=== PATIENT | male | born 2000 | race Caucasian/White ===

== ENCOUNTER 2021-01-16 18:29 | Emergency (ER) | payer OTHER ==
--- NOTE | 2021-01-16 18:41 | EDM.PDOC ---
<Arin Crockett - Last Filed: 01/16/21 18:41> ED HPI GENERAL MEDICAL PROBLEM - General Chief Complaint: Bite:Animal, Insect Stated Complaint: AMBULANCE Time Seen by Provider: 01/16/21 18:30 Source of Information: Reports: Patient, EMS, EMS Notes Reviewed, Family, RN, RN Notes Reviewed History Limitations: Reports: No Limitations - History of Present Illness INITIAL COMMENTS - FREE TEXT/NARRATIVE: Patient is a 20-year-old male who presents to ER per [facility] with complaint of bee sting to the lip. EMS reports the patient was gi kacey 2 injections of EpiPen Stewart after the bee sting due to the patient feeling as if he had a scratchy throat and was having difficulty breathing. Upon arrival to the scene EMS did give the patient 25 mg of Benadryl IV. EMS did call the ER and was instructed by this provider to give Pepcid 20 mg IV as well as Solu-Medrol 125 mg IV. 1 L normal saline was also started in the field. Upon arrival to the ER patient is shaking, states he feels nauseated but has not vomited. EMS reports they have given a total of 4 mg Zofran in the field as well. Patient denies any past medical health problems, admits to history of MD. Onset: Today, Sudden ED ROS GENERAL - Review of Systems Review Of Systems: Comprehensive ROS is negative, except as noted in HPI. ED EXAM, ANIMAL BITE - Physical Exam Exam: See Below Exam Limited By: No Limitations General Appearance: Alert, WD/WN, No Apparent Distress, Anxious Eye Exam: Bilateral Eye: EOMI, Normal Inspection Ears: Normal External Exam, Hearing Grossly Normal Nose: Normal Inspection Throat/Mouth: Normal Inspection, Normal Voice, No Airway Compromise, Other (bottom lip swollen) Head: Atraumatic, Normocephalic Neck: Normal Inspection, Supple, Non-Tender, Full Range of Motion Respiratory/Chest: No Respiratory Distress, Lungs Clear, Normal Breath Sounds, No Accessory Muscle Use, Chest Non-Tender Cardiovascular: Normal Peripheral Pulses, Regular Rate, Rhythm, No Edema, No Gallop, No JVD, No Murmur, No Rub Peripheral Pulses: 2+: Radial (L), Radial (R) GI/Abdominal: Normal Bowel Sounds, Soft, Non-Tender (Male) Exam: Deferred Rectal (Males) Exam: Deferred Back Exam: Normal Inspection, Full Range of Motion, NT Extremities: Normal Inspection, Normal Range of Motion, Non-Tender, Normal Capillary Refill, No Pedal Edema Neurological: Alert, Oriented, CN II-XII Intact, Normal Cognition, Normal Gait, Normal Reflexes, No Motor/Sensory Deficits Psychiatric: Normal Affect, Normal Mood, Anxious Skin Exam: Normal Color, Warm/Dry Lymphadenopathy: Bilateral: No Adenopathy Lymphatic: No Adenopathy Departure - Departure Disposition: Home, Self-Care 01 Clinical Impression: Bee sting reaction Qualifiers: Encounter type: initial encounter Injury intent: accidental or unintentional Qualified Code(s): T63.441A - Toxic effect of venom of bees, accidental (unintentional), initial encounter - Discharge Information Instructions: Bee, Wasp, or Hornet Sting, Adult Forms: ED Department Discharge Additional Instructions: If you develop shortness of breath or itching/swelling of the lip/tongue/throat, call/return to the ER Follow up with your primary care provider in 3-5 days <Latia Locke - Last Filed: 01/16/21 19:28> Course - Vital Signs Last Recorded V/S: Last Vital Signs Temp 97.7 F 01/16/21 18:31 Pulse 92 01/16/21 18:31 Resp 18 01/16/21 18:31 BP 118/67 01/16/21 18:31 Pulse Ox 94 L 01/16/21 18:31 - Re-Assessments/Exams Free Text/Narrative Re-Assessment/Exam: Pt reports he is feeling well and is ready to go home. He denies any shortness of breath or swelling/itching in his mouth/throat. 01/16/21 19:27 Departure - Departure Time of Disposition: 19:27 Condition: Good - Discharge Information *PRESCRIPTION DRUG MONITORING PROGRAM REVIEWED*: Not Applicable *COPY OF PRESCRIPTION DRUG MONITORING REPORT IN PATIENT LIZBETH: Not Applicable Sepsis Event Note (ED) - Focused Exam Vital Signs: Vital Signs Temp Pulse Resp BP Pulse Ox 01/16/21 18:31 97.7 F 92 18 118/67 94 L
== END 2021-01-16 19:35 | disposition home or self-care (01) ==
LOC: DL.ED 18:29
DX: T63.441A Toxic effect of venom of bees, accidental (unintentional), initial encounter (principal)
CPT/HCPCS: 99283